=== PATIENT | female | born 1965 | race Caucasian/White ===

== ENCOUNTER → 2020-07-10 15:02 | Outpatient (BNVA) | payer BC, SELFPAY | PROVIDERS: PCP Family Medicine; Visit Provider Counselor Professional | DX: F31.4 Bipolar disorder, current episode depressed, severe, without psychotic features (principal); F41.0 Panic disorder [episodic paroxysmal anxiety] | CPT/HCPCS: 90791 ==

== ENCOUNTER → 2020-07-31 15:34 | Outpatient (BNVA) | payer BC, SELFPAY | PROVIDERS: PCP Family Medicine; Visit Provider Counselor Professional | DX: F31.4 Bipolar disorder, current episode depressed, severe, without psychotic features (principal); F41.0 Panic disorder [episodic paroxysmal anxiety] | CPT/HCPCS: 90832 ==

== ENCOUNTER → 2020-08-14 15:12 | Outpatient (BNVA) | payer BC, SELFPAY | PROVIDERS: PCP Family Medicine; Visit Provider Counselor Professional | DX: F31.4 Bipolar disorder, current episode depressed, severe, without psychotic features (principal); F41.0 Panic disorder [episodic paroxysmal anxiety] | CPT/HCPCS: 90832 ==

== ENCOUNTER → 2020-08-29 15:08 | Outpatient (BNVA) | payer BC, SELFPAY | PROVIDERS: PCP Family Medicine; Visit Provider Counselor Professional | DX: F31.4 Bipolar disorder, current episode depressed, severe, without psychotic features (principal); F41.0 Panic disorder [episodic paroxysmal anxiety] | CPT/HCPCS: 90832 ==

== ENCOUNTER → 2020-09-14 15:09 | Outpatient (BNVA) | payer BC, SELFPAY | PROVIDERS: PCP Family Medicine; Visit Provider Counselor Professional | DX: F31.4 Bipolar disorder, current episode depressed, severe, without psychotic features (principal); F41.0 Panic disorder [episodic paroxysmal anxiety] | CPT/HCPCS: 90832 ==

== ENCOUNTER → 2020-09-28 15:05 | Outpatient (BNVA) | payer BC, SELFPAY | PROVIDERS: PCP Family Medicine; Visit Provider Counselor Professional | DX: F31.4 Bipolar disorder, current episode depressed, severe, without psychotic features (principal); F41.0 Panic disorder [episodic paroxysmal anxiety] | CPT/HCPCS: 90834 ==

== ENCOUNTER → 2020-10-26 15:14 | Outpatient (BNVA) | payer BC, SELFPAY | PROVIDERS: PCP Family Medicine; Visit Provider Counselor Professional | DX: F31.4 Bipolar disorder, current episode depressed, severe, without psychotic features (principal); F41.0 Panic disorder [episodic paroxysmal anxiety] | CPT/HCPCS: 90832 ==

== ENCOUNTER → 2020-11-23 15:05 | Outpatient (BNVA) | payer BC, SELFPAY | PROVIDERS: PCP Family Medicine; Visit Provider Counselor Professional | DX: F31.4 Bipolar disorder, current episode depressed, severe, without psychotic features (principal); F41.0 Panic disorder [episodic paroxysmal anxiety] | CPT/HCPCS: 90832 ==

== ENCOUNTER 2021-08-14 20:41 | Inpatient (IN) | payer MEDICARE, SELFPAY ==
[2021-08-14] MEDS: LORazepam 2 mg/mL INJ 1 mL IVP (20:51)
[2021-08-14 20:59] VITALS: BP 193/145; PULSE 122; RESP 28; TEMP 36.4; O2SAT 95; BMI 29.5
--- NOTE | 2021-08-14 21:07 | ED.C_ITS ---
HPI - Psych General: Chief Complaint: ER Hold Stated Complaint: PSYCH EVAL Time Seen by Provider: 08/14/21 20:42 Source: patient and police Mode of arrival: other (police) Limitations: no limitations History of Present Illness: 55-year-old female who presents here with police under 96-hour hold I states that she has a history of schizophrenia and has not been taking her medicine called they state that she has been extremely combative with them we actually got an ambulance bay to get around the back of the car and she is handcuffed patient's been screaming and yelling at me the whole time I do able to get any history from her really due to her screaming and yelling she denies answer any questions does appear manic. Review of Systems 2 Const: Denies: fever(s), chills, body aches or change in appetite Eyes: Denies: blurry vision or eye discomfort ENMT: Denies: throat pain or dental pain Card: Denies: chest pain Resp: Denies: dyspnea GI: Denies: abdominal pain, nausea, vomiting or diarrhea : Denies: dysuria Musc: Denies: neck pain or back pain Skin/Breast: Denies: rash Neuro: Denies: headache(s) Psych: Reports: irritability Gilles/Lymph: Denies: easy bruising All/Imm: Denies: urticaria PFSH ED PFSH: Medical History (Updated 08/15/21 @ 00:55 by Angela Stanton MD) Acute encephalopathy Allergic rhinitis Bipolar 1 disorder Depression Panic attacks Psychiatric care Schizoaffective disorder Substance abuse in remission Surgical History (Updated 08/15/21 @ 00:48 by Yordy Camp MD) History of hysterectomy Social History Smoking and tobacco status: former smoker Alcohol intake: never History of recent travel: No Current gender identity: Female Physical Exam Const: COMMON NORMALS: patient oriented x3 GENERAL APPEARANCE: in distress HENMT: COMMON NORMALS: normocephalic and atraumatic HEAD & SCALP: normocephalic and atraumatic Eye: COMMON NORMALS: Equal, round and reactive pupils present and EOMs intact bilaterally PUPIL: Yes Equal, round and reactive pupils present Neck/C-Spine: COMMON NORMALS: full ROM and supple Chest: COMMONS NORMALS: normal inspection of the chest and normal palpation of entire chest wall Resp: COMMON NORMALS: normal respiratory effort, No retractions, No use of accessory muscles and clear to auscultation bilaterally AUSCULTATION: clear to auscultation bilaterally Cardio: COMMON NORMALS: regular rate, regular rhythm and No murmurs present (Cardio) RATE: regular rate RHYTHM: regular rhythm GI: COMMON NORMALS: Normal to inspection, nondistended, normoactive bowel sounds present, Soft to palpation, non-tender and no masses PALPATION: Yes Soft to palpation Extremity: COMMON NORMALS: normal to inspection and full ROM Neuro: COMMON NORMALS: patient oriented x3, moves all extremities and no focal motor deficits Psych: APPEARANCE: Yes disheveled ATTITUDE: Yes Belligerent attititude/behavior present, Yes agitated, Yes aggressive and Yes hostile ACTIVITY/MOTOR BEHAVIOR: Yes psychomotor agitation SPEECH: Yes excessive Skin: COMMON NORMALS: no rashes or lesions noted and no wounds GENERAL SKIN EXAM: no rashes or lesions noted Face to Face: Restrn/Seclusion Events leading up to initiation: Verbalizing threat to self or others, Demonstrating self-destructive behavior (cutting, hitting hoffman etc.) and Combative/Striking out at staff or others Evaluation of patient's immediate situation: Alert and oriented and Signs of psychological distress Patient reaction since intervention applied: Continued attempts/displays harmful behavior Recent labs reviewed: Yes Review of medications: Yes Need for restraint or seclusion is: Continued Attending notified: Yes Course Reevaluation(s): Reevaluation #1: Patient here was being very verbally aggressive with staff. I tried multiple attempts of verbal de-escalation that was unsuccessful she kept screaming and yelling was being aggressive in handcuffs with police patient was physically restrained in the restraint bed and given ketamine IM for chemical sedation for her safety along with others Time: 20:48 Vital Signs: Vital signs: Vital Signs Temperature 97.5 F L 08/14/21 20:59 Pulse Rate 81 08/14/21 23:24 Respiratory Rate 20 H 08/14/21 23:24 Blood Pressure 155/101 08/14/21 23:24 Pulse Oximetry 96 08/14/21 23:24 MDM - Psych Medical Decision Making Patient presents with agitation along with acute psychosis. She does have hyponatremia as well slightly elevated white count which be could be due to her agitation. Spoke to psychiatrist patient is under 96-hour hold will admit to the hospitalist at this time for hyponatremia to treat her hyponatremia so she is cleared for admission to psych. Lab Data : 08/14/21 21:12 08/14/21 21:12 Radiology Impressions Chest X-Ray 08/14/21 22:19 IMPRESSION: No acute findings. Laboratory Results WBC 19.6 10^3/uL (4.0-10.0) H 08/14/21 21:12 RBC 4.33 10^6/uL (4.1-5.3) 08/14/21 21:12 Hgb 12.9 g/dL (11.5-15.3) 08/14/21 21:12 Hct 38.3 % (37.0-47.0) 08/14/21 21:12 MCV 88.5 fl (81-99) 08/14/21 21:12 MCH 29.8 pg (28.0-34.0) 08/14/21 21:12 MCHC 33.7 g/dL (30.0-36.0) 08/14/21 21:12 RDW 12.4 % (12.1-15.1) 08/14/21 21:12 Plt Count 401 10^3/cmm (130-400) H 08/14/21 21:12 MPV 9.0 fL (7.4-10.4) 08/14/21 21:12 Neut % (Auto) 81.8 % 08/14/21 21:12 Lymph % (Auto) 10.4 % 08/14/21 21:12 [place] % (Auto) 6.8 % 08/14/21 21:12 Eos % (Auto) 0.1 % 08/14/21 21:12 Baso % (Auto) 0.4 % 08/14/21 21:12 Neut # (Auto) 16.06 10^3/uL (1.8-7.7) H 08/14/21 21:12 Lymph # (Auto) 2.1 10^3/uL (0.8-4.8) 08/14/21 21:12 [place] # (Auto) 1.3 10^3/uL (0.2-0.9) H 08/14/21 21:12 Eos # (Auto) 0.0 10^3/uL (0.0-0.8) 08/14/21 21:12 Baso # (Auto) 0.1 10^3/uL (0.0-0.1) 08/14/21 21:12 Nucleated RBC % (auto) 0 % 08/14/21 21:12 Nucleated RBCs # 0.0 /100WBC 08/14/21 21:12 Sodium 124 mmol/L (136-145) L 08/14/21 21:12 Potassium 4.0 mmol/L (3.5-5.1) 08/14/21 21:12 Chloride 91 mmol/L (98-107) L 08/14/21 21:12 Carbon Dioxide 18 mmol/L (22-29) L 08/14/21 21:12 Anion Gap 19.0 (5-19) 08/14/21 21:12 BUN 6 mg/dL (6-20) 08/14/21 21:12 Creatinine 0.9 mg/dL (0.5-0.9) 08/14/21 21:12 GFR Calculation 65.0 mL/min (90-130) L 08/14/21 21:12 Glucose 151 mg/dL (65-115) H 08/14/21 21:12 Calculated Osmolality 259 mOsm/kg (285-295) L 08/14/21 21:12 Calcium 9.7 mg/dL (8.5-10.5) 08/14/21 21:12 Total Bilirubin 0.3 mg/dL (0.15-1.2) 08/14/21 21:12 AST 40 U/L (0-32) H 08/14/21 21:12 ALT 27 U/L (0-33) 08/14/21 21:12 Alkaline Phosphatase 88 IU/L (35-105) 08/14/21 21:12 C-Reactive Protein 2.4 mg/L (0.0-4.9) 08/14/21 21:12 Total Protein 7.0 g/dL (6.6-8.7) 08/14/21 21:12 Albumin 4.7 g/dL (3.5-5.2) 08/14/21 21:12 Globulin 2.3 g/dL (1.3-4.6) 08/14/21 21:12 Procalcitonin 0.07 ng/mL (0-0.5) 08/14/21 21:12 Urine Color Yellow (Yellow) 08/14/21 23:55 Urine Appearance Clear (CLEAR) 08/14/21 23:55 Urine pH 6 (5-7) 08/14/21 23:55 Ur Specific [place] 1.015 (1.005-1.030) 08/14/21 23:55 Urine Protein Neg (Negative) 08/14/21 23:55 Urine Glucose (UA) Norm (Normal) 08/14/21 23:55 Urine Ketones 1+ (Negative) H 08/14/21 23:55 Urine Blood Neg (Negative) 08/14/21 23:55 Urine Nitrate Negative (Negative) 08/14/21 23:55 Urine Bilirubin Neg (Negative) 08/14/21 23:55 Urine Urobilinogen Norm mg/dL (Negative) 08/14/21 23:55 Ur Leukocyte Esterase Negative (Negative) 08/14/21 23:55 Salicylates 1.1 mg/dL (3-10) L 08/14/21 21:12 Urine Opiates Screen Negative ng/mL (Negative) 08/14/21 23:55 Acetaminophen 7.8 ug/mL (10-30) L 08/14/21 21:12 Ur Barbiturates Screen Negative ng/mL (Negative) 08/14/21 23:55 Ur Phencyclidine Scrn Negative ng/mL (Negative) 08/14/21 23:55 Ur Amphetamines Screen Negative ng/mL (Negative) 08/14/21 23:55 U Benzodiazepines Scrn Negative ng/mL (Negative) 08/14/21 23:55 Urine Cocaine Screen Negative ng/mL (Negative) 08/14/21 23:55 U Marijuana (THC) Screen Positive ng/mL (Negative) H 08/14/21 23:55 Ethyl Alcohol < 10 mg/dL (0-10) 08/14/21 21:12 Imaging Data CXR: I personally reviewed and interpreted this imaging study as follows: My impression: IMPRESSION: No acute findings. 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
[2021-08-14 21:14] VITALS: BP 156/117; PULSE 116; RESP 18; O2SAT 98
[2021-08-14 21:16] LABS: Basophils # 0.1 10^3/uL (0.0-0.1); Basophils % 0.4 %; Eosinophils % 0.1 %; Hematocrit 38.3 % (37.0-47.0); Hemoglobin 12.9 g/dL (11.5-15.3); Lymphocytes # 2.1 10^3/uL (0.8-4.8); Lymphocytes % 10.4 %; Mean Corpuscular HGB Conc 33.7 g/dL (30.0-36.0); Mean Corpuscular Hemoglobin 29.8 pg (28.0-34.0); Mean Corpuscular Volume 88.5 fl (81-99); Monocytes # 1.3 10^3/uL (0.2-0.9); Monocytes % 6.8 %; Neutrophils # 16.06 10^3/uL (1.8-7.7); Neutrophils % 81.8 %; Nucleated Red Blood Cells % 0 %; Platelet Count 401 10^3/cmm (130-400); Red Blood Count 4.33 10^6/uL (4.1-5.3); Red Cell Distribution Width 12.4 % (12.1-15.1); White Blood Count 19.6 10^3/uL (4.0-10.0)
[2021-08-14 21:30] VITALS: BP 146/116; PULSE 100; RESP 18; O2SAT 98
[2021-08-14 21:56] LABS: Acetaminophen 7.8 ug/mL (10-30); Alanine Aminotransferase 27 U/L (0-33); Albumin Level 4.7 g/dL (3.5-5.2); Alkaline Phosphatase 88 IU/L (35-105); Blood Urea Nitrogen 6 mg/dL (6-20); Calcium 9.7 mg/dL (8.5-10.5); Carbon Dioxide 18 mmol/L (22-29); Chloride 91 mmol/L (98-107); Globulin 2.3 g/dL (1.3-4.6); Glucose 151 mg/dL (65-115); Osmolality Calculated 259 mOsm/kg (285-295); Salicylate 1.1 mg/dL (3-10); Sodium 124 mmol/L (136-145); Total Bilirubin 0.3 mg/dL (0.15-1.2)
[2021-08-14 22:00] LABS: Alcohol Level < 10 mg/dL (0-10)
[2021-08-14 22:01] LABS: Aspartate Amino Transferase 40 U/L (0-32)
--- NOTE | 2021-08-14 22:19 | XRR_ITS ---
PROCEDURE INFORMATION: Exam: XR Chest Exam date and time: 08/14/2021 10:19 PM Age: 55 years old Clinical indication: Shortness of breath; Additional info: AMS TECHNIQUE: Imaging protocol: XR of the chest. Views: 1 view. COMPARISON: No relevant prior studies available. FINDINGS: Lungs: Lungs are clear. Pleural spaces: There is no pleural effusion or pneumothorax. Heart/Mediastinum: Cardiomediastinal contours are unremarkable. Bones/joints: Bones are unremarkable. XR/XR chest 1V portable [id number] IMPRESSION: No acute findings.
--- NOTE | 2021-08-14 22:21 | ECG_ITS ---
[facility] Test Date: 2021-08-15 Pat Name: Mitsy Estes Department: Room: Gender: Female Human Resources Operations Manager: : 1965 Requested By: Angela Stanton Order Number: [id number] Sasha MD: Lisa Schultz M.D. Measurements Intervals [place] Rate: 99 P: 79 MD: 142 QRS: 63 QRSD: 96 T: 76 QT: 362 QTc: 466 Interpretive Statements SINUS RHYTHM POSSIBLE RIGHT ATRIAL ENLARGEMENT [0.25mV P-WAVE] LEFT ATRIAL ENLARGEMENT [-0.15mV P-WAVE IN V1/V2] POSSIBLE RIGHT VENTRICULAR CONDUCTION DELAY [RSR (QR) IN V1/V2] SEPTAL MYOCARDIAL INFARCTION , OF INDETERMINATE AGE [40+ ms Q WAVE IN V1/V2] No previous ECG available for comparison Electronically Signed On 08-15-2021 19:27:49 WOOD CAULKER by Lisa Schultz M.D. [id number]
[2021-08-14 22:46] VITALS: BP 122/85; RESP 22; O2SAT 97
[2021-08-14] MEDS: sodium chloride 0.9% 1,000 ML 999 ML IV (23:22)
[2021-08-14 23:24] VITALS: BP 155/101; PULSE 81; RESP 20; O2SAT 96
[2021-08-14 23:59] LABS: Add Urine Microscopic? NO; Charge for UA Resulting for Rev
--- NOTE | 2021-08-14 23:59 | PC.NURSE ---
Straight catheter procedure performed using sterile procedure per myself with Dorothy RN at bedside . patient in no obivous distress. Urine sample collected, labeled and sent to lab. patient on quality assurance monitor final. Sitter at bedside.
[2021-08-15 00:06] LABS: C Reactive Protein 2.4 mg/L (0.0-4.9)
[2021-08-15 00:12] LABS: Amphetamines Screen Urine Negative (Negative); Barbiturates Screen Urine Negative (Negative); Benzodiazepines Screen Urine Negative (Negative); Cocaine Screen Urine Negative (Negative); Opiate Screen Urine Negative (Negative); PCP Screen Urine Negative (Negative); THC Screen Urine Positive (Negative)
[2021-08-15 00:13] LABS: Procalcitonin 0.07 ng/mL (0-0.5)
[2021-08-15 00:20] LABS: Bilirubin Urine Neg (Negative); Blood Urine Neg (Negative); Glucose Urine UA Norm (Normal); Ketones Urine 1+ (Negative); Leukocyte Esterase Urine Negative (Negative); Nitrate Urine Negative (Negative); Protein Urine Neg (Negative); Specific Gravity, Urine 1.015 (1.005-1.030); Urine Appearance Clear (CLEAR); Urine Color Yellow (Yellow); Urobilinogen Urine Norm (Negative); pH Urine 6 (5-7)
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
--- NOTE | 2021-08-15 01:25 | PC.NURSE ---
patient sleeping comfortably in bed at this time. patient on head of commission department. Even and unalbored respirations noted. Patient not in restraints . Sitter at bedside. Side rails raisd x 2 and bed in low, locked position. Patient in no obivous distress .
[2021-08-15] MEDS: enoxaparin 80 mg/0.8 mL Syringe 40 MG SUBCUT (02:33)
[2021-08-15] MEDS: sodium chloride 0.9% 1,000 ML 125 ML IV (02:33)
[2021-08-15 02:37] VITALS: BP 128/65; PULSE 76; RESP 18; O2SAT 96
[2021-08-15 02:42] LABS: Sodium 126 mmol/L (136-145)
--- NOTE | 2021-08-15 03:51 | PC.NURSE ---
patient with noted increased anxiety and aggression noted. patient screaming speaking to sitter at bedside. attempted to calm patient with no improvement.
[2021-08-15] MEDS: LORazepam 2 mg/mL INJ 1 mL IM (03:57)
--- NOTE | 2021-08-15 05:16 | PC.NURSE ---
patient sleeping comfortably in bed at this time. patient in no obivous distress. Even chest rise and fall noted. Patient on cardiac surgeon. Sitter at bedside. safety checks done . Side rails raisedx 2 and bed inl ow, locked position. call light withinr eac.
--- NOTE | 2021-08-15 06:15 | PC.NURSE ---
patient transported to room 8 via stretcher with no issues/complications. patient placed on specialized developer. Sitter at bedside. Safety checks done and clear. patient in no obvious distress.
[2021-08-15 06:52] LABS: Basophils % 0.2 %; Eosinophils % 0.1 %; Hematocrit 36.5 % (37.0-47.0); Hemoglobin 12.4 g/dL (11.5-15.3); Lymphocytes # 2.4 10^3/uL (0.8-4.8); Lymphocytes % 25.3 %; Mean Corpuscular Hemoglobin 30.3 pg (28.0-34.0); Mean Corpuscular Volume 89.2 fl (81-99); Mean Platelet Volume 10.3 fL (7.4-10.4); Monocytes # 0.9 10^3/uL (0.2-0.9); Monocytes % 9.1 %; Neutrophils # 6.04 10^3/uL (1.8-7.7); Nucleated Red Blood Cells % 0 %; Platelet Count 273 10^3/cmm (130-400); Red Blood Count 4.09 10^6/uL (4.1-5.3); Red Cell Distribution Width 12.7 % (12.1-15.1); White Blood Count 9.3 10^3/uL (4.0-10.0)
[2021-08-15 06:54] LABS: Sodium 129 mmol/L (136-145)
[2021-08-15 07:12] VITALS: BP 122/79; PULSE 89; RESP 16; O2SAT 98
--- NOTE | 2021-08-15 09:11 | P.PN_ITS ---
Subjective Subjective: 55-year-old female who was admitted through the emergency room for acute psychosis. She is schizophrenic has not been taking her medications. She is still having random tangential thoughts is difficult to get history from this morning she is complaining of a sore throat. She was hyponatremic on arrival last night but her sodium has been trending up significantly.She was very combative last evening and received ketamine Ativan and antipsychotics. Additionally patient had a reactive leukocytosis which has also improved this morning. Medications: Reviewed: Yes Vitals/I&O/Wt Last Vital Signs Temp 97.5 F L 08/14/21 20:59 Pulse 89 08/15/21 07:12 Resp 16 08/15/21 07:12 BP 122/79 08/15/21 07:12 Pulse Ox 98 08/15/21 07:12 Weight last 48 hrs Weight 90.718 kg Physical Exam Const: COMMON NORMALS: no acute distress and average body habitus GENERAL APPEARANCE: cooperative ORIENTATION/CONSCIOUSNESS: Yes awake HENMT: COMMON NORMALS: normocephalic and atraumatic HEAD & SCALP: normocephalic and atraumatic Resp: COMMON NORMALS: normal respiratory effort and clear to auscultation bilaterally AUSCULTATION: clear to auscultation bilaterally Cardio: COMMON NORMALS: regular rate and regular rhythm RATE: regular rate RHYTHM: regular rhythm GI: COMMON NORMALS: No hepatosplenomegaly present AUSCULTATION: Yes normoactive bowel sounds PALPATION: No Tenderness to palpation present (GI), No Guarding due to palpation present (GI) and Yes No hepatosplenomegaly present Data : 08/15/21 06:22 08/15/21 06:22 A&P Assessment and plan (1) Acute psychosis: Status: Acute (2) Acute hyponatremia: Status: Acute (3) Manic episode: Status: Acute (4) Leukocytosis: Status: Acute (5) Hyponatremia: Status: Acute (6) Schizoaffective disorder: Status: Acute Plan Reviewed labs sodium is trending up. Patient still remains in somewhat of a manic episode although the medications given and have improved it she still has tangential thinking and is having some dissociative thoughts. At this point I believe she is stable to go to the floor medically her white count and her sodium have improved. I discussed Dr. Castaneda will admit her directly from the emergency room to the COMPUTER APPLICATIONS INSTRUCTOR you. Because of hospital census issue she had been held in the emergency room overnight and was initially going to be a medical patient. Attestations Medical Necessity Statement*: Patient required medical monitoring because of her hyponatremia and leukocytosis. Both of these have improved and she has now safe to go to the COMPUTER APPLICATIONS INSTRUCTOR you for her acute psychosis and management of her schizophrenia. Coding Level of Care Code Acute Color Print Inspector for [facility] Diagnoses Acute psychosis F23 Acute hyponatremia E87.1 Manic episode F30.9 Leukocytosis D72.829 Hyponatremia E87.1 Schizoaffective disorder F25.9
[2021-08-15 09:59] LABS: Sodium 131 mmol/L (136-145)
--- NOTE | 2021-08-15 12:44 | NPU.GN ---
[facility] Unit Group Topic:Coping Skills General Mood of Group: Misty did not attend group today.
[2021-08-15] MEDS: blistex lip oint 7 gm Tube 1 APPLIC TOPICAL (13:40)
[2021-08-15] MEDS: hyDROXYzine 25 mg Capsule 50 MG PO (13:44)
--- NOTE | 2021-08-15 13:55 | PC.NURSE ---
Patient crying. requeswt for Vistaril and blistex.
[2021-08-15 14:00] VITALS: BP 126/85; PULSE 92; RESP 18; TEMP 36.8; O2SAT 95
[2021-08-15 14:24] LABS: Sodium 144 mmol/L (136-145)
[2021-08-15 17:59] LABS: Sodium 136 mmol/L (136-145)
[2021-08-15 20:08] VITALS: BP 142/83; PULSE 88; RESP 16; TEMP 36.7; O2SAT 97
[2021-08-15] MEDS: acetaminophen 325 mg Tablet 650 MG PO (20:55)
[2021-08-15 22:15] LABS: Sodium 131 mmol/L (136-145)
--- NOTE | 2021-08-16 02:22 | PC.NURSE ---
Patient requested PRN tylenol for generalized pain. Given as ordered with noted effectiveness.
[2021-08-16] MEDS: acetaminophen 325 mg Tablet 650 MG PO (03:11)
[2021-08-16 06:00] VITALS: BP 128/56; PULSE 98; RESP 18; O2SAT 90
[2021-08-16 07:31] LABS: Basophils % 0.6 %; Eosinophils # 0.1 10^3/uL (0.0-0.8); Eosinophils % 1.6 %; Hematocrit 35.8 % (37.0-47.0); Hemoglobin 11.5 g/dL (11.5-15.3); Lymphocytes # 2.3 10^3/uL (0.8-4.8); Lymphocytes % 34.7 %; Mean Corpuscular HGB Conc 32.1 g/dL (30.0-36.0); Mean Corpuscular Hemoglobin 29.2 pg (28.0-34.0); Mean Corpuscular Volume 90.9 fl (81-99); Mean Platelet Volume 9.3 fL (7.4-10.4); Monocytes # 0.6 10^3/uL (0.2-0.9); Monocytes % 9.5 %; Neutrophils # 3.57 10^3/uL (1.8-7.7); Neutrophils % 53.3 %; Nucleated Red Blood Cells % 0 %; Platelet Count 367 10^3/cmm (130-400); Red Blood Count 3.94 10^6/uL (4.1-5.3); Red Cell Distribution Width 13.1 % (12.1-15.1); White Blood Count 6.7 10^3/uL (4.0-10.0)
[2021-08-16 07:46] LABS: Magnesium 2.1 mg/dL (1.7-2.3)
[2021-08-16 07:47] LABS: Anion Gap 12.7 (5-19); Blood Urea Nitrogen 5 mg/dL (6-20); Calcium 9.4 mg/dL (8.5-10.5); Carbon Dioxide 23 mmol/L (22-29); Chloride 109 mmol/L (98-107); Glomerular Filtration Rate 103.8 mL/min (90-130); Glucose 94 mg/dL (65-115); Osmolality Calculated 289 mOsm/kg (285-295); Potassium 3.7 mmol/L (3.5-5.1); Sodium 141 mmol/L (136-145)
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
--- NOTE | 2021-08-16 12:42 | NPU.GN ---
[facility] Unit Group Topic:Symptoms/ Judgment Boat Activity General Mood of Group: Misty did not attend group today.
[2021-08-16 13:52] VITALS: BP 132/65; PULSE 88; RESP 18; TEMP 36.7; O2SAT 96
[2021-08-16] MEDS: blistex lip oint 7 gm Tube 1 APPLIC TOPICAL (13:58)
[2021-08-16] MEDS: cetylpyridinium Lozenge 1 EACH MUCOUS MEM ×2 (13:59→17:11)
[2021-08-16 14:00] VITALS: BP 132/65; PULSE 88; RESP 18; TEMP 36.7; O2SAT 96
--- NOTE | 2021-08-16 17:38 | PC.NURSE ---
Pt stated that the doctor is slipping pills into her food, in her pudding and cheese snacks. The nurse assured pt that the doctor wasn't doing this.
[2021-08-16 21:58] VITALS: BP 147/70; PULSE 86; RESP 18; TEMP 36.7; O2SAT 98
--- NOTE | 2021-08-17 05:04 | PC.NURSE ---
0311 c/o body aches tylenol given po. 0411-Resting in bed with eyes closed
[2021-08-17 06:00] VITALS: BP 147/90; PULSE 87; RESP 18; O2SAT 98
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
[2021-08-17 14:00] VITALS: BP 137/70; PULSE 80; RESP 16; TEMP 36.6; O2SAT 96
[2021-08-17] MEDS: cetylpyridinium Lozenge 1 EACH MUCOUS MEM (15:49)
[2021-08-17 19:47] VITALS: BP 135/94; PULSE 86; RESP 17; TEMP 36.9; O2SAT 96
[2021-08-17] MEDS: diphenhydrAMINE 25 mg Capsule PO (20:17)
[2021-08-17] MEDS: paliperidone ER 3 mg Tablet PO (20:17)
[2021-08-17] MEDS: efferdent effervescent 1 EACH DENTAL (21:01)
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
--- NOTE | 2021-08-17 23:24 | PC.NURSE ---
2017 request benadryl for insomnia. 2116-She is still awake in her room.
--- NOTE | 2021-08-18 03:25 | PC.NURSE ---
Patient is up in her room making her bed. When asked if she needs anything she states, That medicine you gave me really messed with my nerves. This nurse tried to talk to her about how she was feeling and all she would say is, I could use some ice water. Ice water was given to the patient and she went to her room.
[2021-08-18 06:00] VITALS: BP 146/67; PULSE 106; RESP 16; TEMP 36.6; O2SAT 99
[2021-08-18] MEDS: efferdent effervescent 1 EACH DENTAL ×3 (08:07→22:17)
[2021-08-18 10:12] LABS: Basophils # 0.1 10^3/uL (0.0-0.1); Eosinophils % 0.6 %; Hematocrit 39.1 % (37.0-47.0); Hemoglobin 12.5 g/dL (11.5-15.3); Lymphocytes # 1.5 10^3/uL (0.8-4.8); Lymphocytes % 20.9 %; Mean Corpuscular Hemoglobin 29.2 pg (28.0-34.0); Mean Corpuscular Volume 91.4 fl (81-99); Mean Platelet Volume 9.4 fL (7.4-10.4); Monocytes # 0.6 10^3/uL (0.2-0.9); Monocytes % 7.8 %; Neutrophils # 4.99 10^3/uL (1.8-7.7); Neutrophils % 69.4 %; Nucleated Red Blood Cells % 0 %; Platelet Count 420 10^3/cmm (130-400); Red Blood Count 4.28 10^6/uL (4.1-5.3); White Blood Count 7.2 10^3/uL (4.0-10.0)
[2021-08-18 10:38] LABS: Magnesium 2.1 mg/dL (1.7-2.3); Phosphorus 4.7 mg/dL (2.5-4.5)
[2021-08-18 10:39] LABS: Blood Urea Nitrogen 8 mg/dL (6-20); Calcium 9.6 mg/dL (8.5-10.5); Carbon Dioxide 26 mmol/L (22-29); Chloride 102 mmol/L (98-107); Glomerular Filtration Rate 103.8 mL/min (90-130); Glucose 121 mg/dL (65-115); Osmolality Calculated 294 mOsm/kg (285-295); Sodium 142 mmol/L (136-145)
[2021-08-18 10:47] VITALS: BP 171/105; PULSE 108; RESP 18; O2SAT 98
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
[2021-08-18 14:00] VITALS: BP 154/77; PULSE 90; RESP 16; TEMP 36.4; O2SAT 97
[2021-08-18] MEDS: acetaminophen 325 mg Tablet 650 MG PO (16:22)
[2021-08-18 21:12] VITALS: BP 130/80; PULSE 98; RESP 18; O2SAT 99
[2021-08-19] MEDS: acetaminophen 325 mg Tablet 650 MG PO ×2 (02:56→15:49)
[2021-08-19] MEDS: diphenhydrAMINE 25 mg Capsule PO ×2 (02:57→15:49)
[2021-08-19 04:08] VITALS: BMI 29.5
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
[2021-08-19] MEDS: efferdent effervescent 1 EACH DENTAL ×2 (13:27→19:17)
[2021-08-19 14:00] VITALS: BP 148/94; PULSE 103; RESP 18; TEMP 36.4; O2SAT 97
[2021-08-19] MEDS: neomycin-poly-bacitracin oint 28 gm 1 APPLIC TOPICAL (21:02)
[2021-08-19] MEDS: blistex lip oint 7 gm Tube 1 APPLIC TOPICAL (21:02)
[2021-08-19] MEDS: cetylpyridinium Lozenge 1 EACH MUCOUS MEM (21:03)
[2021-08-19 21:29] VITALS: BP 167/76; PULSE 103; RESP 15; TEMP 36.5; O2SAT 98
[2021-08-20 06:00] VITALS: BP 150/71; PULSE 92; RESP 16; TEMP 36.5; O2SAT 98
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
--- NOTE | 2021-08-20 11:47 | NPU.GN ---
[facility] Group Topic: Nida Bonner General Mood of Group: Misty did attend and participate in group. She seems stable. Her hygiene was good and was social and pleasant with this show card writer and other clients in group. She did have to leave a few times from group as another client would not stop disrupting the group and Misty was getting annoyed.
[2021-08-20 14:00] VITALS: BP 133/83; PULSE 111; RESP 20; TEMP 36.6; O2SAT 98
[2021-08-20 20:19] VITALS: BP 115/77; PULSE 97; RESP 18; TEMP 36.8; O2SAT 100
[2021-08-20] MEDS: blistex lip oint 7 gm Tube 1 APPLIC TOPICAL (21:28)
[2021-08-20] MEDS: neomycin-poly-bacitracin oint 28 gm 1 APPLIC TOPICAL (21:28)
[2021-08-20] MEDS: cetylpyridinium Lozenge 1 EACH MUCOUS MEM (21:29)
[2021-08-20] MEDS: efferdent effervescent 1 EACH DENTAL (21:30)
[2021-08-21] MEDS: ibuprofen 600 mg Tablet PO (05:17)
[2021-08-21 06:00] VITALS: BP 147/68; PULSE 74; RESP 18; TEMP 36.7; O2SAT 100
--- NOTE | 2021-08-21 11:50 | NPU.GN ---
[facility] Topic:Dice Breaker Group Activity General Mood of Group:Misty did not attend group today. She was on a phone call.
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
[2021-08-21 14:00] VITALS: BP 191/102; PULSE 99; RESP 18; TEMP 36.8; O2SAT 99
--- NOTE | 2021-08-21 17:56 | PC.NURSE ---
patient agitated, asking for her belongings, states she has a right to have her stuff . patient verbally redirected by staff, stating it is for her safety and ours. patient wants to try on her clothes for court date tomorrow. patient notified that she has to wear green psych scrubs to court and she cannot change. patient upset by this, saying it is against the law .
--- NOTE | 2021-08-21 18:16 | PC.NURSE ---
patient demanding all medical records. patient given copy of 96 hour hold paperwork which she was requesting, informed she can go through medical records after discharge if she wants access to those.
[2021-08-21] MEDS: efferdent effervescent 1 EACH DENTAL (20:50)
[2021-08-21 22:00] VITALS: BP 178/97; PULSE 100; RESP 22; TEMP 36.6; O2SAT 98
--- NOTE | 2021-08-22 06:16 | PC.NURSE ---
The DELI/BAKERY ASSOCIATE went in the patient's room to get a set of vital signs. The patient is awake and sitting on her bed. The patient told the DELI/BAKERY ASSOCIATE, No, you aren;t getting nothing from me today. Chart marked as a refusal.
--- NOTE | 2021-08-22 11:17 | NPU.GN ---
[facility] Topic: Thought Process General Mood of Group:Misty did not attend or participate in group.
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
[2021-08-22 14:00] VITALS: BP 156/92; PULSE 99; RESP 17; O2SAT 98
--- NOTE | 2021-08-22 14:57 | P.NPUPN_ITS ---
Subjective NPU Subjective: Interval history: She is quite upset today because she thought that the court hearing was today when it is actually tomorrow. He has been very demanding and thinks that she needs from the nurses. Blood pressure has been elevated recently but she refuses to allow them to recheck it. It is possible that it is dangerously high but she refuses any evaluation or treatment for it. Mental Status Exam MSE Comments: This is an overweight female who appears approximately her stated age and is in some mild distress. she is adamant that she is not going to take an antipsychotic. She will only take Benadryl for sleep. psychomotor activity is increased. She was very restless Speech is increased in rate and volume with significant pressure. Good articulation. No clang associations or tangentiality. Alert, oriented x3 Attention and concentration appears to be intact. Memory is intact Mood is anxious. Affect is quite anxious and dysphoric. Thought process is logical and goal-directed. Thought content: Denies auditory and visual hallucinations. He appears to be quite delusional about her and others in the community and drugging and abusing her. She also feels that we are now trying to hurt her. Denies current suicidal ideation, and no homicidal ideation. Fund of knowledge is difficult to discern. Insight and judgment appear to be very impaired. Impulse control is impaired. Cognition: Patient Appearance: Appropriate Level of Consciousness: Drowsy Patient Cognition Impaired: No Ability to Follow Directions: Good Patient Orientation (long list): Person, Place, Name, Age and Birthday Comprehension Ability: No Impairment Hallucination Type: None Delusion Description: Not Present Thought Process: Disorganized, Flight of Ideas, Incoherent and Perseveration Affect: Affect Description: Flat Depressive Symptoms: Hopelessness and Unhappiness Behavior: Patient Behavior: Uncooperative and Withdrawn Speech Pattern: Appropriate and Clear Vitals/I&O/Wt Last Vital Signs Temp 97.9 F 08/21/21 22:00 Pulse 100 08/21/21 22:00 Resp 22 H 08/21/21 22:00 BP 178/97 08/21/21 22:00 Pulse Ox 98 08/21/21 22:00 08/21/21 08/22/21 08/22/21 22:59 06:59 14:59 Intake Total 240 / 240 Balance 240 / 240 Data NPU : 08/18/21 09:22 08/18/21 09:22 A&P Assessment and plan (1) Schizoaffective disorder: Status: Acute (2) Acute psychosis: Status: Acute (3) Hyponatremia: Status: Acute Plan This is a 55-year-old female with a long history of mental health treatment. She is evidently not responded well to antipsychotics and does not want to take them. She refuses to take Invega or any antipsychotic. Will probably need to go with a 21-day commitment as her outpatient psychiatrist request to start a long- term injectable agent. Outpatient psychiatrist agrees that Lamictal is not a good choice for her because of her for frequent noncompliance. Plan: 1. We will try to talk her into a different taking risperidone. We have applied for 21-day commitment. 2. Continue every 15 minute checks for safety. 3. Encourage individual, group and milieu therapies. 4. Encourage sober living treatment after discharge at the highest level of care to which she is willing to commit. 5. We will monitor for safety for herself in the community prior to discharge. Involuntary Hold Information 96 Hour Hold: 96 Hour Involuntary Admission: Yes 96 Hour Hold Ending Date: 08/21/21 96 Hour Hold Ending Time: 20:41 Attestations NPU Medical Necessity Statement*: Inpatient hospitalization is medically necessary and the clinically appropriate intervention at this time. We will initiate medications and make changes as indicated. Coding Level of Care Code Acute Weather Forcaster for Raciel Rahman Diagnoses Schizoaffective disorder F25.9 Acute psychosis F23 Hyponatremia E87.1
[2021-08-22 21:58] VITALS: BP 126/80; PULSE 102; RESP 16; TEMP 36.6; O2SAT 96
[2021-08-23 06:00] VITALS: BP 146/85; PULSE 91; RESP 18; TEMP 36.7; O2SAT 98
--- NOTE | 2021-08-23 12:39 | P.NPUPN_ITS ---
Subjective NPU Subjective: Interval history: She is quite upset today because she thought that the court hearing was today when it is actually tomorrow. She says that I am her enemy. She thinks that we are putting niacin in her medications and food. She has been letting them take her blood pressure recently. She thinks that I am mentally with her . She also says that the longer must be in late with them as well. She hopes that the marble worker is not in league with her . Mental Status Exam MSE Comments: This is an overweight female who appears approximately her stated age and is in some mild distress. she is adamant that she is not going to take an antipsychotic. She will only take Benadryl for sleep. psychomotor activity is increased. She was very restless Speech is increased in rate and volume with significant pressure. Good articulation. No clang associations or tangentiality. Alert, oriented x3 Attention and concentration appears to be intact. Memory is intact Mood is anxious. Affect is quite anxious and dysphoric. Thought process is logical and goal-directed. Thought content: Denies auditory and visual hallucinations. He appears to be quite delusional about her and others in the community and drugging and abusing her. She also feels that we are now trying to hurt her. Denies current suicidal ideation, and no homicidal ideation. Fund of knowledge is difficult to discern. Insight and judgment appear to be very impaired. Impulse control is impaired. Cognition: Patient Appearance: Appropriate Level of Consciousness: Drowsy Patient Cognition Impaired: No Ability to Follow Directions: Good Patient Orientation (long list): Person, Place, Name, Age and Birthday Comprehension Ability: No Impairment Hallucination Type: None Delusion Description: Not Present Thought Process: Perseveration Affect: Affect Description: Guarded Depressive Symptoms: Hopelessness and Unhappiness Behavior: Patient Behavior: Irritable, Resistive to Care and Withdrawn Speech Pattern: Clear and Rambling Vitals/I&O/Wt Last Vital Signs Temp 98.0 F 08/23/21 06:00 Pulse 91 08/23/21 06:00 Resp 18 08/23/21 06:00 BP 146/85 08/23/21 06:00 Pulse Ox 98 08/23/21 06:00 Data NPU : 08/18/21 09:22 08/18/21 09:22 A&P Assessment and plan (1) Schizoaffective disorder: Status: Acute (2) Acute psychosis: Status: Acute (3) Hyponatremia: Status: Acute Plan This is a 55-year-old female with a long history of mental health treatment. She is evidently not responded well to antipsychotics and does not want to take them. She refuses to take Invega or any antipsychotic. Will probably need to go with a 21-day commitment as her outpatient psychiatrist request to start a long- term injectable agent. Outpatient psychiatrist agrees that Lamictal is not a good choice for her because of her for frequent noncompliance. Plan: 1. We will try to talk her into a different taking risperidone. We have applied for 21-day commitment. 2. Continue every 15 minute checks for safety. 3. Encourage individual, group and milieu therapies. 4. Encourage sober living treatment after discharge at the highest level of care to which she is willing to commit. 5. We will monitor for safety for herself in the community prior to discharge. Involuntary Hold Information 96 Hour Hold: 96 Hour Involuntary Admission: Yes 96 Hour Hold Ending Date: 08/21/21 96 Hour Hold Ending Time: 20:41 Attestations NPU Medical Necessity Statement*: Inpatient hospitalization is medically necessary and the clinically appropriate intervention at this time. We will initiate medications and make changes as indicated. Coding Level of Care Code Acute Wind Turbine Technician for Raciel Rahman Diagnoses Schizoaffective disorder F25.9 Acute psychosis F23 Hyponatremia E87.1
--- NOTE | 2021-08-23 16:53 | PC.NURSE ---
[address] today. Left unit and returned to unit in custody of officer. Rec Therapist granted 21 day hold. Patient has remained disorganized and delusional throughout day. Is resistive to care. Speech is rambling at times. Denies AVH but is noted to be in room frequently having conversation with no one else in room.
[2021-08-23] MEDS: efferdent effervescent 1 EACH DENTAL (17:25)
[2021-08-23 19:42] VITALS: BP 150/62; PULSE 87; RESP 20; TEMP 36.6; O2SAT 97
[2021-08-24] MEDS: efferdent effervescent 1 EACH DENTAL ×3 (00:14→15:58)
[2021-08-24 06:00] VITALS: BP 134/77; PULSE 103; RESP 20; TEMP 36.6; O2SAT 97
--- NOTE | 2021-08-24 12:41 | P.NPUPN_ITS ---
Subjective NPU Subjective: Interval history: She did have hearing before yesterday and was quite obviously delusional. The privacy attorney said that she recommended the garnett machine operator helper. She was committed for treatment. She was told that she would be given an antipsychotic and I tried several times to get her to choose one. She refused. I told her that since she said that Abilify and Invega were bad for her I would choose olanzapine. She said she had an adverse reaction with olanzapine. I offered her Abilify again and she said that would kill her. She did not have any specific objection to Haldol. She said that she would not take it. Mental Status Exam MSE Comments: This is an overweight female who appears approximately her stated age and is in some mild distress. she is adamant that she is not going to take an antipsychotic. She will only take Benadryl for sleep. psychomotor activity is increased. She was very restless Speech is increased in rate and volume with significant pressure. Good articulation. No clang associations or tangentiality. Alert, oriented x3 Attention and concentration appears to be intact. Memory is intact Mood is anxious. Affect is quite anxious and dysphoric. Thought process is logical and goal-directed. Thought content: Denies auditory and visual hallucinations. She appears to be quite delusional about her and others in the community and drugging and abusing her. She also feels that we are now trying to hurt her. Denies current suicidal ideation, and no homicidal ideation. Fund of knowledge is difficult to discern. Insight and judgment appear to be very impaired. Impulse control is impaired. Cognition: Patient Appearance: Appears Older than Age Level of Consciousness: Drowsy Patient Cognition Impaired: No Ability to Follow Directions: Good Patient Orientation (long list): Person, Place, Time, Name, Age and Year Comprehension Ability: No Impairment Hallucination Type: None Delusion Description: Paranoid Ideation and Persecutory Thought Process: Disorganized and Flight of Ideas Affect: Affect Description: Guarded Depressive Symptoms: Hopelessness and Unhappiness Behavior: Patient Behavior: Negative and Resistive to Care Speech Pattern: Clear Vitals/I&O/Wt Last Vital Signs Temp 97.8 F 08/24/21 06:00 Pulse 103 H 08/24/21 06:00 Resp 20 H 08/24/21 06:00 BP 134/77 08/24/21 06:00 Pulse Ox 97 08/24/21 06:00 Data NPU : 08/18/21 09:22 08/18/21 09:22 A&P Assessment and plan (1) Schizoaffective disorder: Status: Acute (2) Acute psychosis: Status: Acute (3) Hyponatremia: Status: Acute Plan This is a 55-year-old female with a long history of mental health treatment. S he is evidently not responded well to antipsychotics and does not want to take them. She refuses to take Invega or any antipsychotic. Will probably need to go with a 21-day commitment as her outpatient psychiatrist request to start a long- term injectable agent. Outpatient psychiatrist agrees that Lamictal is not a good choice for her because of her for frequent noncompliance. She requested that we get her on a long Acting Injectable antipsychotic. Plan: 1. We will try to talk her into a different taking risperidone. We have applied for 21-day commitment. 2. Continue every 15 minute checks for safety. 3. Encourage individual, group and milieu therapies. 4. Encourage sober living treatment after discharge at the highest level of care to which she is willing to commit. 5. We will monitor for safety for herself in the community prior to discharge. Involuntary Hold Information 96 Hour Hold: 96 Hour Involuntary Admission: Yes 96 Hour Hold Ending Date: 08/21/21 96 Hour Hold Ending Time: 20:41 Attestations NPU Medical Necessity Statement*: Inpatient hospitalization is medically necessary and the clinically appropriate intervention at this time. We will initiate medications and make changes as indicated. Coding Level of Care Code Acute Line Maintenance Supervisor for Raciel Rahman Diagnoses Schizoaffective disorder F25.9 Acute psychosis F23 Hyponatremia E87.1
[2021-08-24 13:39] VITALS: BP 130/74; PULSE 87; RESP 16; TEMP 37.1; O2SAT 97
[2021-08-24] MEDS: diphenhydrAMINE 50 mg/mL SDV 1mL 25 MG IM (18:43)
[2021-08-24] MEDS: haloperidol inj 5 mg/mL INJ 1 mL IM (18:44)
--- NOTE | 2021-08-24 19:24 | PC.NURSE ---
Medication- gave orders to give IM Benadryl and Haldol now that [address] Patient was agitated about this and feels that it is against her rights. Staff attempted to explain situation to patient with little success. Advised that medications were to be given. Staff assisted patient to lay on bed. Patient agreed to allow nurses to give INJ to bilateral deltoids. No issues with inj given. Patient yelling in room after. Allowed patient to calm in room after and did calm quickly. Has had no further issues noted.
[2021-08-24 20:09] VITALS: BP 123/54; PULSE 83; RESP 17; TEMP 36.5; O2SAT 94
[2021-08-25 06:00] VITALS: RESP 15
[2021-08-25] MEDS: efferdent effervescent 1 EACH DENTAL ×3 (08:38→22:16)
--- NOTE | 2021-08-25 11:57 | P.NPUPN_ITS ---
Subjective NPU Subjective: Interval history: She did not agree to the injections last night but she did not like. She says now that she is going to take the oral Haldol at the same dose. She had the usual side effects of restlessness and palpitations. Similar to what she said she had with the Invega. She says that she definitely does not want to take Invega, Abilify or olanzapine. She understands to take Benadryl along with the Haldol. She has told the nurses that she does not want does not want a long- acting injection of Haldol. I did not discuss that today. Mental Status Exam MSE Comments: This is an overweight female who appears approximately her stated age and is in some mild distress. She will only take Benadryl for sleep. psychomotor activity is mildly increased. She was mildly restless Speech is increased in rate and volume with significant pressure. Good articulation. No clang associations or tangentiality. Alert, oriented x3 Attention and concentration appears to be intact. Memory is intact Mood is anxious but better Affect is mildly dysphoric. Thought process is logical and goal-directed. Thought content: Denies auditory and visual hallucinations. She appears to be quite delusional about her and others in the community and drugging and abusing her. She also feels that we are now trying to hurt her. Denies current suicidal ideation, and no homicidal ideation. Fund of knowledge is average. Insight and judgment appear to be very impaired. Impulse control is impaired. Cognition: Patient Appearance: Appropriate Level of Consciousness: Drowsy Patient Cognition Impaired: No Ability to Follow Directions: Good Patient Orientation (long list): Person, Place, Time, Name, Age and Year Comprehension Ability: No Impairment Hallucination Type: None Delusion Description: Paranoid Ideation and Persecutory Thought Process: Circumstantial and Perseveration Affect: Affect Description: Calm Depressive Symptoms: Hopelessness and Unhappiness Behavior: Patient Behavior: Cooperative Speech Pattern: Clear Vitals/I&O/Wt Last Vital Signs Temp 97.7 F 08/24/21 20:09 Pulse 83 08/24/21 20:09 Resp 15 08/25/21 06:00 BP 123/54 08/24/21 20:09 Pulse Ox 94 08/24/21 20:09 Data NPU : 08/18/21 09:22 08/18/21 09:22 A&P Assessment and plan (1) Schizoaffective disorder: Status: Acute (2) Acute psychosis: Status: Acute (3) Hyponatremia: Status: Acute Plan This is a 55-year-old female with a long history of mental health treatment. She is evidently not responded well to antipsychotics and does not want to take them. She refuses to take Invega or any antipsychotic.. Outpatient psychiatrist agrees that Lamictal is not a good choice for her because of her for frequent noncompliance. She requested that we get her on a long Acting Injectable antipsychotic. Now that we have the order for treatment we will give her some oral Haldol and eventually get injection. Plan: 1. We have applied for 21-day commitment. Haldol 5 mg at bedtime along with Benadryl 25 mg. 2. Continue every 15 minute checks for safety. 3. Encourage individual, group and milieu therapies. 4. Encourage sober living treatment after discharge at the highest level of care to which she is willing to commit. 5. We will monitor for safety for herself in the community prior to discharge. Involuntary Hold Information 96 Hour Hold: 96 Hour Involuntary Admission: Yes 96 Hour Hold Ending Date: 08/21/21 96 Hour Hold Ending Time: 20:41 Attestations NPU Medical Necessity Statement*: Inpatient hospitalization is medically necessary and the clinically appropriate intervention at this time. We will initiate medications and make changes as indicated. Coding Level of Care Code Acute Standards Analyst for Raciel Rahman Diagnoses Schizoaffective disorder F25.9 Acute psychosis F23 Hyponatremia E87.1
[2021-08-25 14:00] VITALS: RESP 18
[2021-08-25] MEDS: haloperidol 5 mg Tablet PO (20:46)
[2021-08-25 21:17] VITALS: BP 133/76; PULSE 98; RESP 17; TEMP 36.8; O2SAT 97
[2021-08-25] MEDS: diphenhydrAMINE 25 mg Capsule PO (23:02)
[2021-08-26 06:00] VITALS: BP 123/67; PULSE 86; RESP 16; TEMP 36.4; O2SAT 96
[2021-08-26] MEDS: efferdent effervescent 1 EACH DENTAL ×2 (08:52→17:14)
--- NOTE | 2021-08-26 11:53 | P.NPUPN_ITS ---
Subjective NPU Subjective: Interval history: She said that she feels like the Haldol is helping her. Her blood pressure is down about 10 points. She feels more relaxed. She did not feel that it made her a little restless and caused her to toss and turn some at night. However after some discussion it seemed like her sleep is really not changed since she has been on the Haldol. She talked to her yesterday and he said that he would let her come home. She had been concerned about that. She says it is her home and she has a right to go back there. She said they have been having some problems but it is not so bad that she cannot return. She did not mention anything delusional about him. she said that she did not want anything done against her will. And she said we should not discuss that today. Mental Status Exam MSE Comments: This is an overweight female who appears approximately her stated age and is in no distress. psychomotor activity is normal. Speech is increased in rate and volume with significant pressure. Good articulation. No clang associations or tangentiality. Alert, oriented x3 Attention and concentration appears to be intact. Memory is intact Mood is anxious but better Affect is very mildly dysphoric. Thought process is logical and goal-directed. Thought content: Denies auditory and visual hallucinations. She is certainly more pleasant and cooperative. She did not mention any delusional material. It is hopeful that her delusions are decreased. Denies current suicidal ideation, and no homicidal ideation. Fund of knowledge is average. Insight and judgment appear to be impaired, possibly improving. Impulse control is improved. Cognition: Patient Appearance: Appropriate Level of Consciousness: Drowsy Patient Cognition Impaired: No Ability to Follow Directions: Good Patient Orientation (long list): Person, Place, Time, Name, Age and Year Comprehension Ability: No Impairment Hallucination Type: None Delusion Description: Paranoid Ideation Thought Process: Disorganized and Flight of Ideas Affect: Affect Description: Appropriate Depressive Symptoms: Hopelessness and Unhappiness Behavior: Patient Behavior: Appropriate Speech Pattern: Appropriate Vitals/I&O/Wt Last Vital Signs Temp 97.5 F L 08/26/21 06:00 Pulse 86 08/26/21 06:00 Resp 16 08/26/21 06:00 BP 123/67 08/26/21 06:00 Pulse Ox 96 08/26/21 06:00 Weight last 48 hrs Weight 84.187 kg Weight 84.187 kg Data NPU : 08/18/21 09:22 08/18/21 09:22 A&P Assessment and plan (1) Schizoaffective disorder: Status: Acute (2) Acute psychosis: Status: Acute (3) Hyponatremia: Status: Acute Plan This is a 55-year-old female with a long history of mental health treatment. She is evidently not responded well to antipsychotics and does not want to take them. She refuses to take Invega or any antipsychotic.. Outpatient psychiatrist agrees that Lamictal is not a good choice for her because of her for frequent noncompliance. She requested that we get her on a long Acting Injectable antipsychotic. Now that we have the order for treatment we will give her some oral Haldol and eventually get injection. Plan: 1. She is on Court ordered 21-day commitment for evaluation and treatment. Haldol 5 mg at bedtime along with Benadryl 25 mg. 2. Continue every 15 minute checks for safety. 3. Encourage individual, group and milieu therapies. 4. Encourage sober living treatment after discharge at the highest level of care to which she is willing to commit. 5. We will monitor for safety for herself in the community prior to discharge. Involuntary Hold Information 96 Hour Hold: 96 Hour Involuntary Admission: Yes 96 Hour Hold Ending Date: 08/21/21 96 Hour Hold Ending Time: 20:41 Attestations NPU Medical Necessity Statement*: Inpatient hospitalization is medically necessary and the clinically appropriate intervention at this time. We will initiate medications and make changes as indicated. Coding Level of Care Code Acute Room Service Waiter for Raciel Rahman Diagnoses Schizoaffective disorder F25.9 Acute psychosis F23 Hyponatremia E87.1
[2021-08-26 14:00] VITALS: BP 125/84; PULSE 88; RESP 18; TEMP 36.4; O2SAT 97
[2021-08-26] MEDS: acetaminophen 325 mg Tablet 650 MG PO (15:50)
[2021-08-26 19:33] VITALS: BP 124/73; PULSE 88; RESP 16; TEMP 36.3; O2SAT 98
[2021-08-26] MEDS: haloperidol 5 mg Tablet PO (21:10)
[2021-08-26] MEDS: diphenhydrAMINE 25 mg Capsule PO (22:29)
--- NOTE | 2021-08-27 03:14 | PC.NURSE ---
Patient came to nurses station at approx 0100 stating she was restless and fidgety. Patient stated I want you to tell the that the haldol is keeping me up at night. Patient was rounded on q15 mins and appeared to be resting quietly in room with eyes closed most of night.
[2021-08-27 06:00] VITALS: BP 143/85; PULSE 112; RESP 20; TEMP 36.6; O2SAT 98
[2021-08-27] MEDS: efferdent effervescent 1 EACH DENTAL ×3 (08:31→20:18)
--- NOTE | 2021-08-27 11:42 | W.PM.NPUPNS ---
Subjective NPU Subjective: Interval history: She thinks that the Haldol at bedtime is causing her to be more awake and restless. She would like to change that to the morning time. I offered her half dose in the morning and a half in the evening as she did not want to try that at this time. She will try half the dose now and see how that affects her. She thinks the Benadryl that we have is not the same as what she takes at home. It is not relaxing like it should be. We decided to try some Vistaril at bedtime. She continues to say that she does not need medication and that she feels better without medication. Mental Status Exam MSE Comments: This is an overweight female who appears approximately her stated age and is in no distress. psychomotor activity is normal. Speech is increased in rate and volume with significant pressure. Good articulation. No clang associations or tangentiality. Alert, oriented x3 Attention and concentration appears to be intact. Memory is intact Mood is anxious but better Affect is mildly dysphoric. Thought process is logical and goal-directed. Thought content: Denies auditory and visual hallucinations. She is certainly more pleasant and cooperative. She did not mention any delusional material. It is hopeful that her delusions are decreased. Denies current suicidal ideation, and no homicidal ideation. Fund of knowledge is average. Insight and judgment appear to be impaired, possibly improving. Impulse control is improved. Cognition: Patient Appearance: Appropriate Level of Consciousness: Drowsy Patient Cognition Impaired: No Ability to Follow Directions: Good Patient Orientation (long list): Person, Place and Time Comprehension Ability: No Impairment Hallucination Type: None Delusion Description: Paranoid Ideation Thought Process: Disorganized and Flight of Ideas Affect: Affect Description: Guarded Depressive Symptoms: Hopelessness and Unhappiness Behavior: Patient Behavior: Resistive to Care Speech Pattern: Appropriate and Clear Vitals/I&O/Wt Last Vital Signs Temp 97.8 F 08/27/21 06:00 Pulse 112 H 08/27/21 06:00 Resp 20 H 08/27/21 06:00 BP 143/85 08/27/21 06:00 Pulse Ox 98 08/27/21 06:00 Weight last 48 hrs Weight 84.187 kg Weight 84.187 kg Data NPU : 08/18/21 09:22 08/18/21 09:22 A&P Assessment and plan (1) Schizoaffective disorder: Status: Acute (2) Acute psychosis: Status: Acute (3) Hyponatremia: Status: Acute Plan This is a 55-year-old female with a long history of mental health treatment. She is evidently not responded well to antipsychotics and does not want to take them. She refuses to take Invega or any antipsychotic.. Outpatient psychiatrist agrees that Lamictal is not a good choice for her because of her for frequent noncompliance. She requested that we get her on a long Acting Injectable antipsychotic. Now that we have the order for treatment we will give her some oral Haldol and eventually get injection. Plan: 1. She is on Court ordered 21-day commitment for evaluation and treatment. Changed to Haldol 5 mg in the morning and Vistaril 25 mg at bedtime. 2. Continue every 15 minute checks for safety. 3. Encourage individual, group and milieu therapies. 4. Encourage sober living treatment after discharge at the highest level of care to which she is willing to commit. 5. We will monitor for safety for herself in the community prior to discharge. Involuntary Hold Information 96 Hour Hold: 96 Hour Involuntary Admission: Yes 96 Hour Hold Ending Date: 08/21/21 96 Hour Hold Ending Time: 20:41 Attestations NPU Medical Necessity Statement*: Inpatient hospitalization is medically necessary and the clinically appropriate intervention at this time. We will initiate medications and make changes as indicated. Coding Level of Care Code Acute Frame Cleaner for Raciel Rahman Diagnoses Schizoaffective disorder F25.9 Acute psychosis F23 Hyponatremia E87.1
[2021-08-27] MEDS: haloperidol 1 mg Tablet 2 MG PO (13:41)
[2021-08-27 14:00] VITALS: BP 135/77; PULSE 94; RESP 18; TEMP 36.6; O2SAT 97
[2021-08-27 19:39] VITALS: BP 122/65; PULSE 99; RESP 18; TEMP 36.6; O2SAT 98
[2021-08-27] MEDS: hyDROXYzine 25 mg Capsule PO (20:21)
[2021-08-28 06:00] VITALS: BP 112/61; PULSE 77; RESP 18; TEMP 36.5; O2SAT 96
[2021-08-28] MEDS: haloperidol 5 mg Tablet PO (06:06)
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
[2021-08-28] MEDS: haloperidol decanoate 100 mg/mL INJ 1 mL 50 MG IM (11:42)
[2021-08-28] MEDS: efferdent effervescent 1 EACH DENTAL ×2 (11:56→19:51)
[2021-08-28 13:23] VITALS: BP 143/78; PULSE 68; RESP 17; TEMP 36.8; O2SAT 98
[2021-08-28] MEDS: blistex lip oint 7 gm Tube 1 APPLIC TOPICAL (19:51)
[2021-08-28 20:35] VITALS: BP 135/78; PULSE 97; RESP 16; TEMP 36.3; O2SAT 98
[2021-08-29 05:46] VITALS: BP 110/70; PULSE 89; RESP 20; TEMP 36.7; O2SAT 97
[2021-08-29] MEDS: haloperidol 5 mg Tablet PO (06:01)
--- NOTE | 2021-08-29 06:06 | PC.NURSE ---
I went to the patient to give her the AM dose of Haldol 5mg. She states she received the vaccine yesterday and she should not be getting the pill today. I let her know the order was still in her chart for it to be given this morning. I let her know that I would speak with the charge nurse. She believes that we are triple dosing her and we are out to cause harm. I spoke with her and let her know that it does take a while for the injection to be in full effect so she does have to continue the medication orally. She requested print out information on her 21 day hold so she knows her patient rights and the charge nurse spoke with Dr. Zacarias about her concerns.
--- NOTE | 2021-08-29 12:47 | W.PM.NPUPNS ---
Subjective NPU Subjective: She still is not happy that she received a Haldol injection but not agitated. She does feel that she is doing better and calmer and hoping that the option to discharge soon is on the table.? She did not seem concerned that the Haldol have affected her blood sugar so far today Mental Status Exam MSE Comments: This is a overweight white female noted that her stated age and hospital scrubs with adequate grooming and eye contact.? Mild psychomotor retardation but otherwise no abnormal movements.? Cooperative with exam in mild distress.? Speech was normal rate and volume.? Mood described as better, affect anxious.? Thought process organized.? Thought content: Patient denied suicidal or homicidal ideation, no delusions reported or noted, she denied auditory or visual hallucinations.? Attention and concentration appeared intact and memory seem mostly reliable but none were formally tested.? She alert and oriented x3.? Insight and judgment are limited impulse control appeared fair. Cognition: Patient Appearance: Appropriate Level of Consciousness: Awake, Alert, Appropriate and Drowsy Patient Cognition Impaired: No Ability to Follow Directions: Good Patient Orientation (long list): Person, Place, Time, Name, Birthday, Day of Week, Month and Year Comprehension Ability: No Impairment Hallucination Type: None Delusion Description: Paranoid Ideation Thought Process: Appropriate Affect: Affect Description: Appropriate and Calm Depressive Symptoms: Hopelessness and Unhappiness Behavior: Patient Behavior: Appropriate and Cooperative Speech Pattern: Appropriate and Clear Vitals/I&O/Wt Last Vital Signs Temp 97.7 F 09/05/21 13:13 Pulse 73 09/05/21 13:13 Resp 20 H 09/05/21 13:13 BP 115/71 09/05/21 13:13 Pulse Ox 97 09/05/21 13:13 Data NPU : 08/18/21 09:22 08/18/21 09:22 A&P Assessment and plan (1) Schizoaffective disorder: Status: Acute (2) Acute psychosis: Status: Acute (3) Acute hyponatremia: Status: Acute (4) Acute encephalopathy: Status: Acute (5) Manic episode: Status: Acute (6) Substance abuse in remission: Status: Acute (7) Depression: Status: Acute Qualifiers: Depression Type: major depressive disorder Major depression recurrence: recurrent Active/Remission status: currently active Major depression episode severity: mild Qualified Code(s): F33.0 - Major depressive disorder, recurrent, mild Plan This is a 55-year-old female with a long history of mental health treatment.? She is evidently not responded well to antipsychotics and does not want to take them. She refuses to take Invega or any antipsychotic..? Outpatient psychiatrist agrees that Lamictal is not a good choice for her because of her for frequent noncompliance.? She requested that we get her on a long Acting Injectable antipsychotic. Now that we have the order for treatment we will give her some oral Haldol and eventually get injection. Plan: 1. ? She is on Court ordered 21-day commitment for evaluation and treatment.? Changed to Haldol 5 mg in the morning and Vistaril 25 mg at bedtime.? Haldol decanoate 50 mg IM 2.? Continue every 15 minute checks for safety. 3.? Encourage individual, group and milieu therapies. 4.? Encourage sober living treatment after discharge at the highest level of care to which she is willing to commit. Involuntary Hold Information 96 Hour Hold: 96 Hour Involuntary Admission: Yes 96 Hour Hold Ending Date: 08/21/21 96 Hour Hold Ending Time: 20:41 Attestations NPU Medical Necessity Statement*: Inpatient hospitalization is medically necessary and the clinically appropriate intervention at this time. We will initiate medications and make changes as indicated. Coding Level of Care Code Acute Hospital Plan Administrator for Raciel Rahman Diagnoses Schizoaffective disorder F25.9 Acute psychosis F23 Acute hyponatremia E87.1 Acute encephalopathy G93.40 Manic episode F30.9 Substance abuse in remission F19.11 Depression F33.0 Depression Type: major depressive disorder Major depression recurrence: recurrent Active/Remission status: currently active Major depression episode severity: mild
[2021-08-29 13:47] VITALS: BP 130/85; PULSE 79; RESP 17; TEMP 36.6; O2SAT 100
[2021-08-29] MEDS: benztropine 1 mg Tablet PO (18:04)
[2021-08-29] MEDS: efferdent effervescent 1 EACH DENTAL (20:18)
[2021-08-29 22:00] VITALS: BP 130/85; PULSE 79; RESP 17; TEMP 36.6; O2SAT 100
[2021-08-30] MEDS: acetaminophen 325 mg Tablet 650 MG PO ×2 (04:27→16:06)
[2021-08-30 06:00] VITALS: BP 131/80; PULSE 80; RESP 17; TEMP 36.5; O2SAT 96
[2021-08-30] MEDS: benztropine 1 mg Tablet PO (09:35)
[2021-08-30] MEDS: haloperidol 5 mg Tablet PO (09:37)
[2021-08-30 14:00] VITALS: BP 137/72; PULSE 79; RESP 20; TEMP 36.7; O2SAT 100
--- NOTE | 2021-08-30 17:43 | P.NPUPN_ITS ---
Subjective NPU Subjective: Interval history: Patient is in today reporting that she got a Haldol injection and understands he needs a few days for it to be at a level which can probably discontinue oral medication. She does feel that she is doing better and calmer and hoping that the option to discharge soon is on the table. She had some somatic fixation about her blood sugar and its connection to the Haldol and endorses to be hypoglycemia and was advised that she had some episode that she would say is consistent with her concern to let us know and we could check her blood sugar. Mental Status Exam MSE Comments: This is a overweight white female noted that her stated age and hospital scrubs with adequate grooming and eye contact. Mild psychomotor retardation but otherwise no abnormal movements. Cooperative with exam in mild distress. Speech was normal rate and volume. Mood described as better, affect anxious. Thought process organized. Thought content: Patient denied suicidal or homicidal ideation, no delusions reported or noted, she denied auditory or visual hallucinations. Attention and concentration appeared intact and memory seem mostly reliable but none were formally tested. She alert and oriented x3. Insight and judgment are limited impulse control appeared fair. Vitals/I&O/Wt Last Vital Signs Temp 98.2 F 08/30/21 22:00 Pulse 81 08/30/21 22:00 Resp 18 08/30/21 22:00 BP 150/54 08/30/21 22:00 Pulse Ox 99 08/30/21 22:00 Data NPU : 08/18/21 09:22 08/18/21 09:22 A&P Assessment and plan (1) Schizoaffective disorder: Status: Acute (2) Acute psychosis: Status: Acute (3) Manic episode: Status: Acute Plan This is a 55-year-old female with a long history of mental health treatment.? She is evidently not responded well to antipsychotics and does not want to take them. She refuses to take Invega or any antipsychotic..? Outpatient psychiatrist agrees that Lamictal is not a good choice for her because of her for frequent noncompliance.? She requested that we get her on a long Acting Injectable antipsychotic. Now that we have the order for treatment we will give her some oral Haldol and eventually get injection. Plan: 1. ? She is on Court ordered 21-day commitment for evaluation and treatment.? Changed to Haldol 5 mg in the morning and Vistaril 25 mg at bedtime.? Haldol decanoate 50 mg IM 2.? Continue every 15 minute checks for safety. 3.? Encourage individual, group and milieu therapies. 4.? Encourage sober living treatment after discharge at the highest level of care to which she is willing to commit. Involuntary Hold Information 96 Hour Hold: 96 Hour Involuntary Admission: Yes 96 Hour Hold Ending Date: 08/21/21 96 Hour Hold Ending Time: 20:41 Attestations NPU Medical Necessity Statement*: Inpatient hospitalization is medically necessary and the clinically appropriate intervention at this time.? We will initiate medications and make changes as indicated. Patient with 1 day hold but will discharge soon as safe and psychosocial support in place. Coding Level of Care Code Acute Cigarette Book Maker for Raciel Rahman Diagnoses Schizoaffective disorder F25.9 Acute psychosis F23 Manic episode F30.9
[2021-08-30] MEDS: efferdent effervescent 1 EACH DENTAL (18:53)
[2021-08-30 22:00] VITALS: BP 150/54; PULSE 81; RESP 18; TEMP 36.8; O2SAT 99
[2021-08-31] MEDS: benztropine 1 mg Tablet PO ×2 (05:15→20:47)
[2021-08-31 06:00] VITALS: BP 129/79; PULSE 105; RESP 20; TEMP 36.7; O2SAT 97
--- NOTE | 2021-08-31 06:21 | PC.NURSE ---
0621- She came and voicing concerns that she took her long acting injection. She is wanting to talk to the doctor about why she is still on PO haldol. She doesn't want to take medication until she can talk to the doctor.
[2021-08-31] MEDS: haloperidol 5 mg Tablet PO (09:39)
[2021-08-31] MEDS: acetaminophen 325 mg Tablet 650 MG PO (09:52)
[2021-08-31] MEDS: efferdent effervescent 1 EACH DENTAL (10:11)
[2021-08-31 14:00] VITALS: BP 146/82; PULSE 88; RESP 16; TEMP 36.6; O2SAT 99
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
[2021-08-31 20:52] VITALS: BP 130/86; PULSE 83; RESP 18; O2SAT 98
--- NOTE | 2021-08-31 22:16 | PC.NURSE ---
2046- She requested rebel for S/E. 2146- She is resting in bed with eyes closed.
[2021-09-01] MEDS: acetaminophen 325 mg Tablet 650 MG PO ×4 (01:10→21:42)
[2021-09-01 06:00] VITALS: BP 106/69; PULSE 92; RESP 17; O2SAT 95
[2021-09-01] MEDS: haloperidol 5 mg Tablet PO (06:57)
[2021-09-01] MEDS: efferdent effervescent 1 EACH DENTAL ×2 (08:48→19:11)
[2021-09-01 14:00] VITALS: BP 106/69; PULSE 92; RESP 17; TEMP 36.6; O2SAT 95
--- NOTE | 2021-09-01 15:31 | W.PM.NPUPNS ---
Subjective NPU Subjective: Interval history: Patient presents today very much lamenting about being on the oral Haldol and how she believes is causing her pain in all of her joints. She was much less focused on the paranoid and persecutory thoughts as yesterday and seemed to be more focused on pain and wanting to be home. We discussed that we would follow Dr. Sherwood's plan to discontinue the oral Haldol after 6 days. Medications: Medication Review Details: This is a overweight white female looking older than her stated age in hospital scrubs with adequate grooming and eye contact.? Mild psychomotor retardation but otherwise no abnormal movements.? Cooperative with exam in mild distress.? Speech was normal rate and volume.? Mood described as better, affect less irritable.? Thought process organized.? Thought content: Patient denied suicidal or homicidal ideation, no delusions reported and less apparent paranoid and persecutory delusions noted, she denied auditory or visual hallucinations.? Attention and concentration appeared intact and memory was mostly unreliable but none were formally tested.? She alert and oriented x3.? Insight and judgment are impaired, impulse control appeared limited. Vitals/I&O/Wt Last Vital Signs Temp 97.9 F 09/01/21 14:00 Pulse 92 09/01/21 14:00 Resp 17 09/01/21 14:00 BP 106/69 09/01/21 14:00 Pulse Ox 95 09/01/21 14:00 Data NPU : 08/18/21 09:22 08/18/21 09:22 A&P Assessment and plan (1) Schizoaffective disorder: Status: Acute (2) Acute psychosis: Status: Acute (3) Acute hyponatremia: Status: Acute (4) Acute encephalopathy: Status: Acute (5) Manic episode: Status: Acute (6) Substance abuse in remission: Status: Acute (7) Depression: Status: Acute Qualifiers: Depression Type: major depressive disorder Major depression recurrence: recurrent Active/Remission status: currently active Major depression episode severity: mild Qualified Code(s): F33.0 - Major depressive disorder, recurrent, mild Plan This is a 55-year-old female with a long history of mental health treatment.? She is evidently not responded well to antipsychotics and does not want to take them. She refuses to take Invega or any antipsychotic..? Outpatient psychiatrist agrees that Lamictal is not a good choice for her because of her for frequent noncompliance.? She requested that we get her on a long Acting Injectable antipsychotic. Plan: 1. ? She is on Court ordered 21-day commitment for evaluation and treatment.? Changed to Haldol 5 mg in the morning and Vistaril 25 mg at bedtime.? Haldol decanoate 50 mg IM given. Plan to lower or discontinue oral Haldol. 2.? Continue every 15 minute checks for safety. 3.? Encourage individual, group and milieu therapies. 4.? Encourage sober living treatment after discharge at the highest level of care to which she is willing to commit. Involuntary Hold Information 96 Hour Hold: 96 Hour Involuntary Admission: Yes 96 Hour Hold Ending Date: 08/21/21 96 Hour Hold Ending Time: 20:41 Attestations NPU Medical Necessity Statement*: Inpatient hospitalization is medically necessary and the clinically appropriate intervention at this time.? We will initiate medications and make changes as indicated.? Patient with 21 day hold but will discharge soon as safe and psychosocial support in place. Coding Level of Care Code Acute Diagnostic Cardiac Sonographer for Raciel Fwd Diagnoses Schizoaffective disorder F25.9 Acute psychosis F23 Acute hyponatremia E87.1 Acute encephalopathy G93.40 Manic episode F30.9 Substance abuse in remission F19.11 Depression F33.0 Depression Type: major depressive disorder Major depression recurrence: recurrent Active/Remission status: currently active Major depression episode severity: mild
[2021-09-01 22:00] VITALS: BP 105/63; PULSE 82; RESP 20; TEMP 36.6; O2SAT 95
[2021-09-02 06:00] VITALS: BP 135/82; PULSE 92; RESP 20; TEMP 37.3; O2SAT 97
[2021-09-02] MEDS: haloperidol 1 mg Tablet 3 MG PO (06:22)
--- NOTE | 2021-09-02 09:01 | PC.NURSE ---
Am assessment Patient is up near nurses station. She denies SI, HI, or hallucinations. She is noted to have an anxious affect. She states she has had heart palpitations since receiving Haldol inj. She reports neck stiffness. She is alert and oriented in all aspects. Hr regular in rhythm. PPP x 2, no edema noted. Lungs clear with breathing even and non labored. Bowel sounds active in all quads. Denies pain with urination. Denies pain elsewhere. Skin is warm and dry. No skin tears, rashes or bruises noted.
[2021-09-02] MEDS: benztropine 1 mg Tablet PO (11:35)
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
[2021-09-02] MEDS: efferdent effervescent 1 EACH DENTAL ×2 (11:39→16:51)
[2021-09-02 14:00] VITALS: BP 142/73; PULSE 83; RESP 16; TEMP 36.6; O2SAT 97
[2021-09-02 20:14] VITALS: BP 110/63; PULSE 77; RESP 16; TEMP 36.5; O2SAT 97
[2021-09-03] MEDS: benztropine 1 mg Tablet PO ×2 (01:22→16:22)
[2021-09-03 05:35] VITALS: BP 110/63; PULSE 77; RESP 16; TEMP 36.5; O2SAT 97
[2021-09-03 05:51] VITALS: BP 103/66; PULSE 85; RESP 16; TEMP 36.7; O2SAT 97
[2021-09-03] MEDS: haloperidol 1 mg Tablet 3 MG PO (07:06)
[2021-09-03 13:50] VITALS: BP 123/78; PULSE 77; RESP 18; TEMP 36.6; O2SAT 99
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
[2021-09-03 20:06] VITALS: BP 124/61; PULSE 91; RESP 18; TEMP 36.7; O2SAT 100
[2021-09-03] MEDS: blistex lip oint 7 gm Tube 1 APPLIC TOPICAL (21:05)
[2021-09-04 06:00] VITALS: BP 109/69; PULSE 86; RESP 18; TEMP 36.6; O2SAT 97
[2021-09-04] MEDS: benztropine 1 mg Tablet PO ×2 (11:52→23:23)
[2021-09-04] MEDS: efferdent effervescent 1 EACH DENTAL ×2 (13:17→20:06)
[2021-09-04 14:00] VITALS: BP 109/69; PULSE 86; RESP 18; TEMP 36.6; O2SAT 97
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
[2021-09-04 21:09] VITALS: BP 142/91; PULSE 81; RESP 20; TEMP 36.3; O2SAT 97
[2021-09-05] MEDS: blistex lip oint 7 gm Tube 1 APPLIC TOPICAL (00:51)
[2021-09-05 06:00] VITALS: BP 115/71; PULSE 73; RESP 20; TEMP 36.5; O2SAT 97
--- NOTE | 2021-09-05 09:54 | PC.NURSE ---
Extensive conversation with patient regarding discharge. Patient is tearful and worries that will not want her home. Patient states she is going to look at a senior center for housing on discharge.
--- NOTE | 2021-09-05 11:28 | DCPLANNER ---
IMM completed on 09/05/21 @ [id number]. Pt was given a copy of rights and understood rights.
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
[2021-09-05 13:13] VITALS: BP 115/71; PULSE 73; RESP 20; TEMP 36.5; O2SAT 97
[2021-09-05] MEDS: hyDROXYzine 25 mg Capsule PO (14:11)
--- NOTE | 2021-09-05 14:13 | PC.NURSE ---
Patient request prn medication for anxiety. Vistaril 25 mg po given for this.
== END 2021-09-05 15:27 | disposition home or self-care (01) | DRG 885 ==
LOC: ER 08-15 00:55 → NP 08-15 09:06
PROVIDERS: Emergency Medicine; Family Medicine; Admitting Provider Psychiatry & Neurology Psychiatry; Emergency Provider Family Medicine; PCP Family Medicine; Visit Provider Psychiatry & Neurology Psychiatry
DX: F25.9 Schizoaffective disorder, unspecified (principal); F23 Brief psychotic disorder; G93.40 Encephalopathy, unspecified; F33.0 Major depressive disorder, recurrent, mild; E78.1 Pure hyperglyceridemia; F19.11 Other psychoactive substance abuse, in remission; Z87.891 Personal history of nicotine dependence; R45.1 Restlessness and agitation; D72.829 Elevated white blood cell count, unspecified
CPT/HCPCS: 36415; 71045; 80048; 80053; 80306; 80307; 81003; 83735; 84100; 84145; 84295; 84443; 85025; 86140; 93005; 96372; 96374; 97150; 97165; 99285; J1200; J1630; J1631; J1650; J2060; J3490; J7030